=== PATIENT | female | born 1935 | race Caucasian/White ===

== ENCOUNTER 2018-09-14 12:06 | Day surgery (SDC) | payer MEDICARE, OTHER ==
[~2018-09-14] VITALS: Ht 165.1 cm; Wt 75.9 kg
[2018-09-14 12:46] LABS: BASOPHILS 0.9 % (0-2); EOSINOPHILS 1.7 % (0-7); HEMATOCRIT 38.1 % (36.0-48.0); HEMOGLOBIN 12.2 g/dL (12-16); IMMATURE GRANULOCYTES 0.1 % (0-5); MCH 29.8 pg (26.0-34.0); MCV 92.9 fL (80.0-100.0); MEAN PLATELET VOLUME 9.4 fL (7.4-10.4); NEUTROPHILS 66.3 % (40-80); RDW 14.8 % (11.5-14.5); WBC 8.1 10x3/uL (4.8-10.8)
[2018-09-14 12:49] LABS: CALC OSMOLALITY 290 mosm/kg (275-300); CALCIUM 9.1 mg/dL (8.5-10.1); CARBON DIOXIDE 32.3 mmol/L (21.0-32.0); CHLORIDE - SERUM 103 mmol/L (98-107); CREATININE - SERUM 0.6 mg/dL (0.6-1.3); GLUCOSE 92 mg/dL (74-106); POTASSIUM - SERUM 3.5 mmol/L (3.5-5.1); SODIUM 145 mmol/L (136-145); UREA NITROGEN 17 mg/dL (7-18); eGFR NON AFRICAN AMERICAN > 90 mL/min (90-120)
[2018-09-14 12:53] LABS: PLATELET COUNT 289 10x3/uL (130-400)
[2018-09-14] MEDS ORDERED: THEO-24400 MG PO (13:48)
[2018-09-14] MEDS ORDERED: VOLTAREN75 MG PO (13:49)
[2018-09-14] MEDS ORDERED: OXYCODONE-APAP1 TAB PO (13:49)
[2018-09-14] MEDS ORDERED: ESTRACE1 MG PO (13:50)
[2018-09-14] MEDS ORDERED: LEVOTHYROXINE50 MCG PO (13:51)
[2018-09-14] MEDS ORDERED: FUROSEMIDE20 MG PO (13:51)
[2018-09-14] MEDS ORDERED: SINGULAIR10 MG PO (13:52)
[2018-09-14] MEDS ORDERED: ADVAIR HFA 230-12 GM INH (13:52)
[2018-09-14] MEDS ORDERED: ALBUTEROL SULF8.5 GM INH (13:52)
[2018-09-14] MEDS ORDERED: VALIUM5 MG PO (13:53)
[2018-09-14] MEDS ORDERED: DOXYCYCLINE HY100 M2 PO (13:53)
[2018-09-14] MEDS ORDERED: CARAFATE1 G/10 ML PO (13:53)
[2018-09-14 14:02] VITALS: BP 144/69; Ht 165.1 cm; Wt 75.9 kg
--- NOTE | 2018-09-14 16:28 | NUR ---
DC INSTRUCTIONS GIVEN TO PT/FAMILY. STATE UNDERSTANDING. DC'D IV CATH FULLY INTACT.
--- NOTE | 2018-09-14 16:49 | NUR ---
PT LEFT UNIT VIA WC AT 164
--- NOTE | 2018-09-21 15:47 | OP ---
PATIENT NAME: AMELIA ARZATE MEDICAL RECORD: [id number] :35 LOCATION:[facility] ADMISSION DATE: SURGEON: GIACOMO RODRIGUEZ DO DATE OF OPERATION: 09/14/2018 PROCEDURE: EGD with biopsies. INDICATION FOR PROCEDURE: GERD, epigastric pain, and nausea. SCOPE: Olympus video gastroscope. MEDICATIONS: Propofol 100 mg IV per anesthesia. ESTIMATED BLOOD LOSS: Minimal. COMPLICATIONS: None. FINDINGS: Informed consent was given. The patient was made comfortable with the above medication. After reaching an adequate level of sedation by slow IV push, the patient was placed on her left side. The endoscope was advanced under direct visualization through the mouth to the second portion of the duodenum. The upper, middle, and lower thirds of the esophagus appeared normal. At the GE junction, there was evidence of LA class A reflux-induced esophagitis. The endoscope was advanced beyond the GE junction in the stomach and retroflexed to view the cardia, which appeared normal. Throughout the fundus, body of the stomach, antrum, and prepyloric regions, there were patchy areas of erythema and granularity, consistent with gastritis. A cold forceps biopsy was obtained to submit for histopathology and to rule out the presence of H. pylori. The endoscope was advanced beyond the pylorus in the duodenum. The entire exam and duodenum down to the second portion appeared normal. The endoscope was withdrawn from the patient. The patient tolerated the procedure well and there were no complications. IMPRESSION: 1. LA class A reflux-induced esophagitis. 2. Gastritis. PLAN AND RECOMMENDATIONS: 1. Discharge home when recovery parameters are met. 2. Follow up biopsy specimen results. 3. GERD diet and reflux precautions. 4. Continue Carafate as prescribed. 5. Add omeprazole 40 mg daily in the a.m. and Pepcid or Zantac in the p.m. for breakthrough symptoms. 6. Follow up in GI clinic in 3-4 weeks. 7. Consider gastric emptying scan as further workup of nausea and abdominal pain. 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
== END 2018-09-14 16:47 | disposition home or self-care (01) ==
LOC: D.OPS 12:06
PROVIDERS: Anesthesiology
DX: K21.0 Gastro-esophageal reflux disease with esophagitis (principal); K29.70 Gastritis, unspecified, without bleeding; Z01.812 Encounter for preprocedural laboratory examination